=== PATIENT | female | born 1960 | race Caucasian/White ===

== ENCOUNTER 2016-09-11 13:09 | Inpatient (IN) | payer OTHER ==
--- NOTE | ~2016-09-11 | CR210 ---
[facility] A Service of [facility] & [facility] RADIOLOGY TEXT RESULTS PATIENT: TAYLOR RAMIREZ LOCATION: C2A - : [birth year] UNIT #: [id number] AGE: [address]: Oanh Whittington MD SEX: F ORDER DR: [id number] [facility] [address] [facility]. [place], [place] [address] [id number] I MR#: [id number] Acc #: [id number] NAME: TAYLOR RAMIREZ. : 1960 SEX: F STUDY DATE/TIME: 09/12/2016 10:50 UNIT: C2A ROOM: 219 STUDY DESCRIPTION: CR Ribs Uni 2 View W PA Ch Lt Attending Physician: Oanh Whittington M.D. Ordering Physician: Oanh Whittington M.D. Primary Care Physician: Irene Javier A.P.R.N. MEDICAL IMAGING REPORT This report is preliminary unless electronic signature is present EXAM AP chest and left rib series HISTORY Pain left rib through 2 days after fall. An AP chest and AP and oblique views of the left ribs are obtained. FINDINGS The patient has had a previous coronary artery bypass. There is an old fracture deformity of the left sixth rib. The ribs otherwise are intact. No acute fractures are seen. CONCLUSION 1. Status post CABG 2. Old left sixth rib fracture. No acute findings Dictated by... Sudarshan Herring M.D. THIS IS AN ELECTRONICALLY VERIFIED REPORT Sudarshan Herring M.D. at 09/14/2016 7:14 AM HERBERT/maximus TD: 09/12/2016 13:31 JOB #: [id number] MEDICAL IMAGING REPORT Page 1 of 1 COPY
--- NOTE | ~2016-09-11 | CO ---
Unit #: [id number] #: [id number] Patient: TAYLOR RAMIREZ [id number] [address] [address] [id number] I MR#: [id number] NAME: TAYLOR RAMIREZ. ROOM: [facility] Age: 56 Sex: F Admission Date: 09/11/2016 : 1960 Attending Physician: Oanh Whittington M.D. Primary Care Physician: Irene Javier A.P.R.N. Consultation Date: 09/12/2016 CONSULTATION REPORT REASON FOR CONSULT ICU management. CHIEF COMPLAINT Frequent falls. HISTORY OF PRESENT ILLNESS This is a 56-year-old female with past medical history significant for diabetes, noncompliant with her medication, presented to the emergency room complaining of frequent falls. Apparently, the patient had a fight with her primary care physician recently and she quit taking all her medication. She wasn't also eating well for the last few days and she was feeling nauseated. She denied any vomiting, shortness of breath, cough or chest pain. No fever, chills or night sweats. Upon presentation to the ER, the patient's blood sugar was about 1000. PAST MEDICAL HISTORY 1. Coronary artery disease. 2. Peripheral vascular disease. 3. Hypertension. 4. Hyperlipidemia. 5. Diabetes. 6. Seizure. 7. COPD. 8. Chronic pain. 9. Tobacco abuse. PAST SURGICAL HISTORY 1. Hysterectomy. 2. Nasal surgery. 3. Knee surgery. 4. Tubal ligation. 5. Appendectomy. 6. Cholecystectomy. 7. Cervical fusion. 8. CABG. 9. Carotid endarterectomy. SOCIAL HISTORY The patient continues to smoke but no history of alcohol or drug abuse. Unit #: [id number] #: [id number] Patient: TAYLOR RAMRIEZ FAMILY HISTORY Coronary artery disease. ALLERGIES No known drug allergies. HOME MEDICATIONS 1. Coumadin. 2. Zestril. 3. Humalog. 4. Flexeril. 5. Metformin. 6. Keppra. 7. Paxil. REVIEW OF SYSTEMS Twelve point review of systems were obtained and were negative except for what was mentioned in the HPI. PHYSICAL EXAMINATION GENERAL: The patient isn't in acute distress. VITAL SIGNS: Temperature 98.3, pulse 86, respiratory rate 17, blood pressure is 146/73, sat'ing 99% on room air. HEENT: Atraumatic, normocephalic. PERRLA, EOMI. NECK: Supple. No JVD, no lymphadenopathy. CHEST: Clear to auscultation bilaterally. HEART: S1, S2. No murmur, gallops or rubs. ABDOMEN: Soft, nontender. Bowel sounds positive. No hepatosplenomegaly. EXTREMITIES: No edema or cyanosis. SUPPLY CHAIN SPECIALIST: Awake, alert, oriented x3. No focal motor/sensory deficits. DIAGNOSTIC STUDIES LABORATORY: Creatinine 0.7, glucose 775, white blood count 8.7, hemoglobin 9.4. IMAGING: Unremarkable. ASSESSMENT 1. Hyperosmolar nonketotic coma or hyperosmolar hyperglycemia state. 2. Acute kidney injury. 3. Pseudohyponatremia. 4. Chronic anemia. 5. Chronic obstructive pulmonary disease. 6. Noncompliance. PLAN 1. Will continue insulin drip but we will transition into subcutaneous and metformin as tolerated. 2. Will DC IV fluids as soon as she is eating. 3. Pain management. 4. DC Boyd catheter. 5. Out of bed to chair and ambulation. 6. DVT prophylaxis. The patient supposedly needs to be on Coumadin. However, she is unsure of the indication and she has not taken it anyhow. I will defer to the primary team and outpatient PCP to address this point. Unit #: [id number] #: [id number] Patient: TAYLOR RAMIREZ Dictated by... Cata Arita TD: 09/12/2016 09:33 JOB #: [id number] CONSULTATION REPORT Page 1 of 1 X DYLAN DIAZ MD CONSULTATION REPORT
--- NOTE | ~2016-09-11 | EKG ---
PATIENT: TAYLOR RAMIREZ UNIT #: [id number] Ventricular Rate: 95 BPM Atrial Rate: 95 BPM P-R Interval: 158 ms QRS Duration: 98 ms Q-T Interval: 362 ms QTC Calculation(Bezet): 454 ms P [place]: 38 degrees Calculated R [place]: -45 degrees Calculated T [place]: 99 degrees Diagnosis Line: Normal sinus rhythm Diagnosis Line: Possible Left atrial enlargement Diagnosis Line: Incomplete right bundle branch block Diagnosis Line: Left anterior fascicular block Diagnosis Line: ST and T wave abnormality, consider lateral ischemia Diagnosis Line: Abnormal ECG Diagnosis Line: When compared with ECG of 09-JAN-2016 13:01, Diagnosis Line: No significant change was found Diagnosis Line: Confirmed by LUNA PRADHAN MD ([id number]) on Diagnosis Line: 09/12/2016 9:08:46 PM INTERPRETING MD: BLANCA
--- NOTE | ~2016-09-11 | DS ---
Unit #: [id number] #: [id number] Patient: TAYLOR SCHAEFER [id number] [address] [address] [id number] I MR#: [id number] NAME: TAYLOR SCHAEFER. ROOM: 219 Age: 56 Sex: F Admission Date: 09/11/2016 : 1960 Discharge Date: 09/13/2016 Attending Physician: Oanh Whittington M.D. Primary Care Physician: Irene Javier A.P.R.N. DISCHARGE SUMMARY PRINCIPAL DIAGNOSES 1. Hyperosmolar nonketotic hyperglycemia. 2. Diabetes mellitus type 2, insulin-requiring and uncontrolled. 3. Translocational hyponatremia. 4. Staph aureus urinary tract infection. 5. Left knee tendonitis. 6. Status post fall. 7. Renal mass with pending CT scan. 8. History of cerebrovascular accident, maintained on subtherapeutic anticoagulation. 9. Chronic anticoagulation. 10. Hyperkalemia. 11. Hypophosphatemia. 12. Normocytic anemia. 13. Peripheral arterial disease. 14. Chronic obstructive pulmonary disease. 15. Tobaccoism. 16. Mild protein malnutrition. 17. Noncompliance. 18. Coronary artery disease. 19. Hypertension. 20. Hyperlipidemia. 21. Seizure disorder. 22. Chronic pain syndrome. CONSULTANTS Dr. Wick, Endocrinology. Dr. Montalvo, Pulmonology. PROCEDURES 1. Chest x-ray on September 11, 2016, with hyperinflation of the lungs, no other acute findings. 2. Left rib x-ray on September 12, 2016, with old left 6th rib fracture. No other acute findings. 3. X-ray of left knee on September 12, 2016, with suprapatellar soft tissue swelling, no evidence of fracture. CLINICAL HISTORY AND HOSPITAL COURSE Ms. Schaefer is a 56-year-old female who presents to the emergency department with left rib and knee pain after some falls at home. During workup in the emergency department, she had blood work done, and was found to have a glucose of 1400. For this reason, she was actually admitted. Unit #: [id number] #: [id number] Patient: TAYLOR SCHAEFER Patient was placed on hyperosmolar nonketotic protocol and admitted to the ICU on an insulin drip. Dr. Wick was consulted. Patient's CT scan was reviewed and reveals an adenoma. This can be followed up as an outpatient. Lab work did reveal some mild hyperkalemia. She was treated with Lasix x1. I will continue Bactrim for her UTI given she has normal renal function. She will be discharged home today on Lovenox after further discussion. HOSPITAL COURSE Fortunately, patient's blood sugars lowered rapidly on insulin drip. She was transitioned to subcutaneous insulin and started on a diet. After eating, sugars did elevate into the 400s and insulin was subsequently adjusted. She will be discharged home on insulin as outlined below with close follow up with Dr. Wick. She has received dietary education during hospitalization, and has been encouraged to monitor sugars closely at home. In regards to patient's left knee and rib pain, x-rays were negative. She was seen by physical therapy, who suggested a rolling walker for which the patient has received her walker. Will continue with pain management exercises at home via Home Health, and if no improvement as an outpatient, she can undergo MRI of the knee. Patient did have urinalysis upon presentation concerning for urinary tract infection, but she was asymptomatic. Urine cultures growing staph aureus and given that she did have catheter during hospitalization, I am going to empirically treat with Bactrim and will follow-up urine culture after discharge. Patient has remained afebrile without leukocytosis. Patient does have a self-reported history of renal mass for which CT scan of the abdomen and pelvis is currently pending. I will review these results later today and consult Urology if necessary; however, further workup can be done on an outpatient basis. Patient also is on Coumadin due to prior history of cardioembolic stroke. She had a subtherapeutic INR upon presentation. She has been placed on bridging Lovenox, will increase/adjust Coumadin and INR can be followed up by Home Health. I anticipate discharge home later today pending results of CT scan. DISCHARGE CONDITION Stable. DISCHARGE STATUS Discharge home with Home Health for PT/OT and nursing for diabetes and INR monitoring. DISCHARGE MEDICATIONS 1. Lovenox 60 mg subcutaneously q.12 hours, to stop when INR greater than or equal to 2.0. 2. Coumadin 3 mg daily, with goal INR of 2-3. 3. Keppra 1000 mg b.i.d. 4. Paxil 10 mg daily. 5. Metformin 1000 mg b.i.d. Unit #: [id number] #: [id number] Patient: TAYLOR SCHAEFER 6. Coreg 3.125 mg p.o. b.i.d. 7. Lisinopril 10 mg half a tablet p.o. daily. 8. Humalog Kwikpen 10 units subcu t.i.d. with meals with associated high-dose sliding scale. 9. Lantus 30 units subcutaneously b.i.d. 10. Hudson 5/325 one p.o. q.4 hours p.r.n. for pain, number given 15. 11. Flexeril 10 mg one-half to one tablet p.o. q.8 hours p.r.n. for pain. DISCHARGE INSTRUCTIONS Patient instructed to follow heart healthy constant carb diet, to obtain Accu-Cheks a.c. and h.s. at home. She can increase her activity as tolerated to the care of physical and occupational therapy. FOLLOW UP Patient needs follow up INR done on September 15, 2016, again with goal INR 2-3. Lovenox may be discontinued when INR is between 2 and 3. She is to follow-up with Dr. Wick in approximately one month and will follow up with her primary care provider, Dr. Irene Javier, in approximately one month as well. Time spent on discharge 46 minutes. ADDITIONAL JOB #: [id number], [id number] Dictated by... Oanh Whittington M.D. URIEL/thuan TD: 09/13/2016 23:22 JOB #: [id number] DISCHARGE SUMMARY Page 1 of 1 X Oanh Whittington MD DISCHARGE SUMMARY
--- NOTE | ~2016-09-11 | DS ---
Unit #: [id number] #: [id number] Patient: TAYLOR RAMIREZ [id number] [address] [place], [place] [address] [id number] I MR#: [id number] NAME: TAYLOR RAMIREZ. ROOM: 219 Age: Sex: F Admission Date: 09/11/2016 : 1960 Discharge Date: 09/13/2016 Attending Physician: Oanh Whittington M.D. Primary Care Physician: Irene Javier A.P.R.N. DISCHARGE SUMMARY ADDENDUM DISCHARGE DIAGNOSES To discharge diagnoses, please add hyperkalemia. HOSPITAL COURSE Patient's CT scan was reviewed and reveals an adenoma. This can be followed up as an outpatient. Lab work did reveal some mild hyperkalemia. She was treated with Lasix x1. I will continue Bactrim for her UTI given she has normal renal function. She will be discharged home today on Lovenox after further discussion. Dictated by... Oanh Whittington M.D. URIEL/mynor TD: 09/13/2016 14:27 JOB #: [id number] DISCHARGE SUMMARY Page 1 of 1 X Oanh Whittington MD DISCHARGE SUMMARY
--- NOTE | ~2016-09-11 | CT6 ---
[facility] A Service of [facility] & [facility] RADIOLOGY TEXT RESULTS PATIENT: TAYLOR RAMIREZ LOCATION: C2A - : [birth year] UNIT #: [id number] AGE: [address]: Oanh Whittington MD SEX: F ORDER DR: [id number] [facility] [address] [facility] [place], [place] [address] [id number] I MR#: [id number] Acc #: [id number] NAME: TAYLOR RAMIREZ. : 1960 SEX: F STUDY DATE/TIME: 09/12/2016 21:35 UNIT: C2A ROOM: 219 STUDY DESCRIPTION: CT Abdomen WWo Cont Attending Physician: Oanh Whittington M.D. Ordering Physician: Hector Wick M.D. Primary Care Physician: Irene Javier A.P.R.N. MEDICAL IMAGING REPORT This report is preliminary unless electronic signature is present EXAM CT of the abdomen with and without contrast INDICATION Follow up left renal mass seen on recent CT scan. TECHNIQUE CT scan of the abdomen was performed before and after the administration of IV contrast. Coronal and sagittal reformatted images were obtained. This CT examination was performed with one or more of the following radiation dose reduction techniques: automatic exposure control, adjustment of mA and/or kV according to patient size, and iterative reconstruction. COMPARISON CT of the abdomen and pelvis from 01/09/2016. FINDINGS Lung bases are clear. There is a small amount of focal fatty infiltration of the liver adjacent to the falciform ligament. Cholecystectomy. The spleen is unremarkable. There is a well-circumscribed lesion located between the lateral limb of the left adrenal gland and the upper pole of the left kidney. On noncontrast imaging, it measures -5 Hounsfield units and I actually believe this represents a left adrenal gland adenoma rather than a lesion arising from the kidney. It measures about 2.4 cm in greatest dimension. It is not significantly changed compared with a study from 2016. Reviewing a study from 2007 shows that the lateral limb of the left adrenal gland is draped over and is nearly touching the upper pole of the left kidney. There are 2 small cysts within the right kidney. The right adrenal gland is unremarkable. The pancreas is unremarkable. [facility]. [facility] A Service of [facility] RADIOLOGY TEXT RESULTS PATIENT: TAYLOR RAMIREZ LOCATION: A 219-01 : [birth year] UNIT #: [id number] AGE: [address]: Oanh Whittington MD SEX: F ORDER DR: Atherosclerotic plaque within the abdominal aorta and the common iliac arteries. Postop changes anterior abdominal wall. The bone windows are unremarkable. IMPRESSION 1. Redemonstrated is a 2.4 cm lesion located between the left kidney and the left adrenal gland which measures negative Hounsfield units on noncontrast portion of the study and does enhance. I believe this represents a lipid rich adrenal adenoma and not a renal mass. 2. There are some small cysts within the right kidney. 3. Previous cholecystectomy. Dictated by... Chris Davis M.D. THIS IS AN ELECTRONICALLY VERIFIED REPORT Chris Davis M.D. at 09/14/2016 7:01 AM INDU/elis TD: 09/13/2016 08:46 JOB #: [id number] MEDICAL IMAGING REPORT Page 1 of 1 COPY
--- NOTE | ~2016-09-11 | A ---
[facility] Nutrition Therapy DATE: 09/12/16 Patient: TAYLOR RAMIREZ Physician: [id number] Address: [address] [place] [address] Room/Bed: [address] [place] [address], Zip: [place] [address] Admit Date: 09/11/16 Date of : [birth year] Height: 5 6 Weight: 150 68.2 NUTRITIONAL ASSESSMENT: REASON: Consult re: Diabetic diet education Dx: 56 y/o female admitted for upper hand/arm and rib pain PMH: DM, CAD, AL, PVD, Hypertension, hyperlipidemia, seizures, CABG Anthropometrics: 5'6", 147-150#, BMI 24 Labs: K+ 3.3, GLU 143, Ca++ 7.9, Alb 3.0, Phos 2.4 Meds: Coumadin, Novolog, hydrocodone, reglan, mag-sulfate, coreg I/O & Bowel function: 2729/1595, BM 6/ Skin Integrity: WNL Assessment: Chart reviwed, events noted. Seeing pt for consult re: diabetic diet education. RD internal medicine specialist spoke with pt at bedside. Pt reported having a poor appetite at home, and eating 1-2 meals per day, her meals typically being lasagna or a burger. Pt says she drinks water, diet soda, or tea with Splenda. RD internal medicine specialist provided written and verbal education on carbohydrate counting, explaining the importance of eating protein with every meal and not skipping meals. RD internal medicine specialist encouraged pt to eat carbohydrates consistently throughout the day and drink water. Pt voiced understanding and no questions at this time. RD will remain available. Intervention: 1. Diet education 2. Consistent Carbohydrate diet Recommendations: 1. Follow consistent carbohydrate diet. Respectfully, [facility] Nutrition Therapy DATE: 09/12/16 Patient: TAYLOR RAMIREZ Physician: [id number] Address: [address] [place] [address] Room/Bed: [address] [place] [address], Zip: [place] [address] Admit Date: 09/11/16 Date of : [birth year] Height: 5 6 Weight: 150 68.2 JUAN J BAKER, internet cafe manager Thien Pacheco MS, RD, LD [employer] [facility] [employer] cc: client file
--- NOTE | ~2016-09-11 | CR169 ---
[facility] A Service of [facility] & [facility] RADIOLOGY TEXT RESULTS PATIENT: TAYLOR RAMIREZ LOCATION: C2A - : [birth year] UNIT #: [id number] AGE: [address]: Oanh Whittington MD SEX: F ORDER DR: [id number] [facility] [address] [facility]. [place], [place] [address] [id number] I MR#: [id number] Acc #: [id number] NAME: TAYLOR RAMIREZ. : 1960 SEX: F STUDY DATE/TIME: 09/12/2016 10:56 UNIT: C2A ROOM: 219 STUDY DESCRIPTION: CR Knee 2 Views Lt Attending Physician: Oanh Whittington M.D. Ordering Physician: Oanh Whittington M.D. Primary Care Physician: Irene Javier A.P.R.N. MEDICAL IMAGING REPORT This report is preliminary unless electronic signature is present EXAM Left knee 2 views. HISTORY Fell 2 days ago with left knee pain. FINDINGS 2 views are submitted. There is suprapatellar soft tissue swelling. Underlying bony elements are intact. No fractures or foreign bodies are seen. CONCLUSION Suprapatellar soft tissue swelling. No fractures or foreign bodies. Dictated by... Sudarshan Herring M.D. THIS IS AN ELECTRONICALLY VERIFIED REPORT Sudarshan Herring M.D. at 09/14/2016 7:14 AM HERBERT/adelia TD: 09/12/2016 13:34 JOB #: [id number] MEDICAL IMAGING REPORT Page 1 of 1 COPY
--- NOTE | ~2016-09-11 | CR72 ---
[facility] A Service of [facility] RADIOLOGY TEXT RESULTS PATIENT: TAYLOR RAMIREZ LOCATION: C2 : [birth year] UNIT #: [id number] AGE: [address]: Oanh Whittington MD SEX: F ORDER DR: [id number] [facility] [address] [facility]. [place], [place] [address] [id number] MR#: [id number] Acc #: [id number] NAME: TAYLOR RAMIREZ. : 1960 SEX: F STUDY DATE/TIME: 09/11/2016 14:17 UNIT: [facility] ROOM: STUDY DESCRIPTION: CR Chest Single View Portable Attending Physician: Jair Capps M.D. Ordering Physician: Jair Capps M.D. Primary Care Physician: Irene Javier A.P.R.N. MEDICAL IMAGING REPORT This report is preliminary unless electronic signature is present EXAM Portable chest x-ray, 09/11/2016. HISTORY Dizziness. Frequent urination. Accu-Chek up. 2 days duration/ Hand and chest pain status post fall. Fall x2. Smoker 30 years. Diabetes, heart murmur, mitral valve prolapse. Heart cath, CABG. Triple bypass. TECHNIQUE AP radiograph of the chest is presented. COMPARISON 05/25/2016 FINDINGS Partially visualized cervicothoracic spinal fixation hardware appears intact. Status post median sternotomy and CABG. Heart upper limits of normal in size. The lungs are well inflated bilaterally. There is no evidence of acute infectious or inflammatory disease, pleural effusion, or pneumothorax. No suspicious nodule. Dictated by... Sudarshan Roberts M.D. THIS IS AN ELECTRONICALLY VERIFIED REPORT Sudarshan Roberts M.D. at 09/12/2016 5:16 PM HENNY/juan TD: 09/11/2016 17:06 JOB #: [id number] [facility] A Service of [facility] & [facility] RADIOLOGY TEXT RESULTS PATIENT: TAYLOR RAMIREZ [id number] : [birth year] UNIT #: [id number] AGE: [address]: Oanh Whittington MD SEX: F ORDER DR: MEDICAL IMAGING REPORT Page 1 of 1 COPY
--- NOTE | ~2016-09-11 | HP ---
Unit #: [id number] #: [id number] Patient: TAYLOR RAMIREZ [id number] [address] [place], [place] [address] [id number] MR#: [id number] NAME: TAYLOR RAMIREZ. ROOM: 71780 Age: 56 Sex: F Admission Date: 09/11/2016 : 1960 Attending Physician: Glenn Montalvo M.D. Primary Care Physician: Irene Javier A.P.R.N. HISTORY AND PHYSICAL CHIEF COMPLAINT Frequent falls. HISTORY OF PRESENT ILLNESS The patient is a 56-year-old female with a history of a diabetes mellitus, noncompliant, presented to the emergency room with frequent falls. The patient also complains of the numbness in the right upper hand and pain in the ribs. The patient stated the patient is not taking insulin for the last few days as patient is not eating well. The patient took the metformin yesterday. The patient was found to have blood sugars in the range of 114, 42 and is being admitted for the above reasons. The patient denies any fever, chills, nausea and vomiting. PAST MEDICAL HISTORY History of coronary artery disease and myocardial infarction, peripheral vascular disease, hypertension, hyperlipidemia, diabetes, seizure disorder, COPD, chronic pain, tobacco abuse. PAST SURGICAL HISTORY Hysterectomy, nasal surgery, knee surgery, tubal ligation, appendectomy, cholecystectomy, cervical fusion, coronary artery bypass grafting, carotid endarterectomy. SOCIAL HISTORY The patient does continue to smoke, denies alcohol or any illicit drug abuse. FAMILY HISTORY Coronary artery disease. ALLERGIES No known drug allergies. HOME MEDICATIONS She takes Coreg, Coumadin, Zestril, Humalog KwikPen 5 units subcu q.a.c., Flexeril, Glucophage, Keppra and Paxil. REVIEW OF SYMPTOMS Fourteen-point review of symptoms performed and only pertinent positive findings as described above, remaining are negative. PHYSICAL EXAMINATION GENERAL APPEARANCE: On examination the patient is sitting on a bed not in Unit #: [id number] #: [id number] Patient: TAYLOR RAMIREZ acute distress. VITAL SIGNS: Temperature 98.4, pulse 91, respiratory rate 18, blood pressure 153/79, sating 99% at room air. HEENT: Head atraumatic, normocephalic. Pupils equal, round and reacting to light and accommodation. Extraocular movements are intact. Dry mucous membrane. NECK: Supple. LUNGS: Decreased air entry at the bases. HEART: Regular rate and rhythm. ABDOMEN: Soft. EXTREMITIES: No cyanosis. No clubbing. NEUROLOGIC: Awake, alert and oriented. No gross focal motor deficit. DIAGNOSTIC STUDIES LABORATORY DATA: Sodium of 113, potassium 4.7, chloride 81, bicarb 20, glucose 1442, BUN 21, creatinine 1.3, beta hydroxybutyrate 0.08 and UA shows more than 1000 glucose, 10 to 25 urine WBCs, troponin less than 0.05, AST 21, ALT 14, alkaline phosphatase 148, pH 7.3, pCO2 36, pO2 78.7, bicarb 19.9, WBC 8, hemoglobin is 10.6, hematocrit 36.1, platelets 217. CARDIOVASCULAR: The EKG shows a normal sinus rhythm at a rate of 95 beats per minute, QTc of 454, IMAGING: Chest x-ray shows no acute cardiopulmonary process. ASSESSMENT 1. Hyperosmolar hyperglycemic state. 2. Hyponatremia. PLAN Plan to admit the patient as inpatient to ICU. Patient will get the IV fluid at 200 mL per hour and continue with the insulin drip 0.1 mg/kg and continue with the hyperglycemic hyperosmolar state protocol. Will have the endocrinology consult and critical care consult and further recommendations will follow. Dictated by Cata Marquez/dyan TD: 09/11/2016 17:13 JOB #: [id number] HISTORY AND PHYSICAL Page 1 of 1 X GLENN MONTALVO MD HISTORY AND PHYSICAL
--- NOTE | ~2016-09-11 | CO ---
Unit #: [id number] #: [id number] Patient: TAYLOR RAMIREZ [id number] [address] [place], [place] [address] [id number] I MR#: [id number] NAME: TAYLOR RAMIREZ ROOM: 219 Age: 56 Sex: F Admission Date: 09/11/2016 : 1960 Attending Physician: Oanh Whittington M.D. Primary Care Physician: Irene Javier A.P.R.N. Consultation Date: 09/11/2016 CONSULTATION REPORT REASON FOR CONSULTATION Hyperglycemia. HISTORY OF PRESENT ILLNESS A 56-year-old female, who does have a history of type 2 diabetes mellitus, poor compliance, who presented to the emergency room with frequent falls with complaining of the numbness in the hands, also been reporting that she has not been eating well. She has generalized weakness, increased thirst and increased frequency of urination. On her labs, she was found to have the blood glucose level of above 1400. Her sodium was 113. She was started on IV fluids. She already received a bolus of normal saline, more than 2 L in the ER. She has been transferred to the unit bed for further management and for the insulin drip management. REVIEW OF SYSTEMS A 12-point review of system was completed and remarkable for shortness of air, generalized weakness, increased falls, increased thirst, and increased urination. Declines any nausea, vomiting, or abdominal pain. No chest pains. No fever or chills. Rest of the 12-point review of systems unremarkable. PAST MEDICAL HISTORY Type 2 diabetes mellitus, poorly controlled; hyperlipidemia; seizure disorder; COPD; chronic pain disorder; tobacco use; coronary artery disease. PAST SURGICAL HISTORY Hysterectomy, nasal surgery, knee surgery, appendectomy, tubal ligation, cholecystectomy, cervical fusions, CABG, carotid endarterectomy, SOCIAL HISTORY Continues to smoke. No alcohol or illicit drugs. FAMILY HISTORY Known coronary artery disease. ALLERGIES None. HOME MEDICATIONS The patient does not remember her insulins; however, as per chart she is on Humalog 5 units each meal and Glucophage. Other medications include Zestril, Coumadin, Coreg, Paxil. Unit #: [id number] #: [id number] Patient: JAMES,TAYLOR P PHYSICAL EXAMINATION GENERAL: She is awake, alert, and oriented to time, place, and person. She is having some shortness of air. VITAL SIGNS: Temperature 99.6, pulse 88, respirations 20, blood pressure 172/72. HEENT: EOMI. Pupils equally reactive to light. NECK: Supple. CHEST: Good air entry. CVS: Regular rhythm. S1 and S2. ABDOMEN: Soft and nontender. Bowel sounds positive. EXTREMITIES: No edema. Ulcers are noted. LABORATORY DATA Labs were reviewed. Sodium is 113, potassium 4.7, chloride 81, CO2 is 20, glucose 1442. A1c is not available yet. ASSESSMENT 1. Hyperosmolar nonketotic hyperglycemia. 2. Hyponatremia, corrected sodium is 133. 3. Hydration. 4. Coronary artery disease, status post coronary artery bypass graft. 5. Acute kidney injury. PLAN We will continue the aggressive IV hydration. Continue insulin drip. Accu-Cheks every hourly. Keep the patient n.p.o. Monitor sodium, potassium, phosphorus closely. Monitor renal functions closely. Replace electrolytes as needed. We will continue to follow the patient for further management. Dictated by... Cata Stanford/sudhir TD: 09/12/2016 15:13 JOB #: [id number] CONSULTATION REPORT Page 1 of 1 X Hector Wick MD CONSULTATION REPORT
[~2016-09-11 13:09] MED LIST: ACETAMINOPHEN PO; ACTOS PO; ADVAIR 1001 DISK W/D; ADVAIR 2501 DISK W/D PO; ALBUTEROL17 G1 IH; ALBUTEROL17 GM; ALBUTEROL17 GM INH; AMARYL2 MG PO; ASPIRIN PO; ASPIRIN81 M1 PO; ASPIRIN81 MG PO; ATORVASTATIN CA80 MG PO; AUGMENTIN PO; BACLOFEN10 MG PO; BLOOD PRESSURE MED?; CALCIUM 500 + D1 TAB PO; CARVEDILOL6.25 MG PO; CHOLESTEROL MED?; COMBIVENT INH14.7 GM INH; COMBIVENT MININEB; COMBIVENT MININEB INH; COREG12.5 MG PO; COUMADIN5 MG PO; CRESTOR; CRESTOR PO; DICLOFENAC PO; DIFLUCAN PO; FLEXERIL PO; FLEXERIL10 MG PO; FLONASE 0.05% N16 G1; GLIMEPIRIDE2 MG PO; GLUCOPHAGE500 MG PO; HIGH BLOOD PRESS MED; IBUPROFEN800 MG PO; INSULIN; INSULIN ASPART; JANUVIA PO; KEPPRA500 M2 PO; LANTUS100 U/ML; LANTUS100 UNITS/ SUBQ; LEVEMIR; LEVEMIR SUBQ; LIPITOR40 MG PO; LISINOPRIL; LISINOPRIL-HCTZ1 T15 PO; LISINOPRIL5 MG PO; LORTAB 10/500 T1 TAB; LORTAB 10/500 T1 TAB PO; LORTAB 101 TAB 10/5 PO; LORTAB 7.5-5001 TAB PO; LOTRIMIN30 GM TOP; LOVASTATIN20 MG PO; METFORMIN PO; METHADONE HCL10 MG PO; METHADONE PO; METHADOSE10 M1 PO; METHADOSE10 MG PO; METOCLOPRAMIDE H5 MG PO; MICRO-K PO; NITROGLYGERIN0.4 MG SL; NOVOLIN 70/30 U13 ML INJ; NOVOLIN 70/30 V10 ML INJ; NOVOLIN R100 UNITS/ SUBQ; NOVOLOG100 U/ML; NOVOLOG100 U/ML SUBQ; NTG SL; NYSTATIN-TRIAMC15 G1 TP; OXYCODONE PO; OXYCODONE15 M1 PO; POTASSIUM 99 MG; PREDNISONE PO; PREDNISONE10 MG/DOSE; PROTONIX PO; REGLAN PO; SIMVASTATIN40 MG; SINGULAIR PO; SPIRIVA18 MCG INH; VITAMIN B 12; VOLMAX4 MG; VOLTAREN75 MG PO; ZESTRIL10 MG PO; [UNRECOGNIZED DRUG - OTHER]
[2016-09-11 14:38] LABS: BASOPHIL% 0.6 % (0-2.5); EOSINOPHIL# 0.1 X10e3 (0-0.7); HEMATOCRIT 36.1 % (35.0-45.0); HEMOGLOBIN 10.6 gm/dL (12.0-16.0); MEAN CELL VOLUME 97.1 FL (83-96); MEAN CORPUSCULAR HEMOGLOBIN 28.6 PG (28-34); MEAN CORPUSCULAR HGB CONC 29.4 g/dL (30-36); MONOCYTE# 0.6 X10e3 (0-1.0); MONOCYTE% 7.5 % (3.0-12.0); NEUTROPHIL# 6.2 X10e3 (1.5-7.1); NEUTROPHIL% 77.9 % (40-75); PLATELET COUNT 217 X10e3 (140-420); RED BLOOD COUNT 3.72 X10e (3.90-5.30); RED CELL DISTRIBUTION WIDTH 17.3 % (11.0-15.5)
[2016-09-11 14:42] LABS: DIFF IND NO
[2016-09-11 14:44] LABS: ARTERIAL BLOOD GAS PCO2 36.1 mmHg (35.0-45.0); ARTERIAL BLOOD GAS PO2 78.7 mmHg (80.0-100); ARTERIAL BLOOD GAS pH 7.349 (7.350-7.450)
[2016-09-11 14:45] LABS: ARTERIAL BLD GAS O2 SATURATION 97.1 % (90.0-100.0); ARTERIAL BLOOD GAS CARBOXY HB 1.4 %sat (0.0-9.0); ARTERIAL BLOOD GAS HCO3 19.9 mmol/L; ARTERIAL BLOOD GAS MET HB 0.8 %sat (0.0-2.0)
[2016-09-11 14:46] LABS: ARTERIAL BLOOD GAS ALLEN TEST NORMAL; ARTERIAL BLOOD GAS ART SITE LEFT BRACHIAL; ARTERIAL DRAW? YES
[2016-09-11 15:06] LABS: URINE SOURCE CLEAN CATCH
[2016-09-11 15:11] LABS: BILIRUBIN, DIRECT 0.1 mg/dL (0.0-0.2); BILIRUBIN,INDIRECT 0.2 mg/dL (0.0-0.9); BILIRUBIN,TOTAL 0.3 mg/dL (0.2-2.0); PROTEIN TOTAL SERUM 6.8 g/dL (6.0-8.3)
[2016-09-11] MEDS ORDERED: FLEXERIL PO (15:25)
[2016-09-11] MEDS ORDERED: PATIENT'S PHARMACY (15:25)
[2016-09-11 15:26] LABS: URINE APPEARANCE CLEAR; URINE BILIRUBIN NEG (NEG); URINE BLOOD TRACE (NEG); URINE COLOR YELLOW; URINE GLUCOSE >1000 MG/DL (NEG); URINE KETONE NEG (NEG); URINE LEUKOCYTE ESTERASE TRACE (NEG); URINE NITRATE NEG (NEG); URINE PH 5.5 (5-8); URINE PROTEIN TRACE (NEG); URINE UROBILINOGEN 0.2 MG/DL (NEG)
[2016-09-11] MEDS ORDERED: PAXIL PO (15:26)
[2016-09-11] MEDS ORDERED: KEPPRA500 M1 PO (15:26)
[2016-09-11] MEDS ORDERED: COREG3.125 MG PO (15:26)
[2016-09-11] MEDS ORDERED: METFORMIN PO (15:26)
[2016-09-11] MEDS ORDERED: COUMADIN2.5 MG PO (15:26)
[2016-09-11 15:27] LABS: POC - TROPONIN <0.05 ng/mL (<=0.05)
[2016-09-11] MEDS ORDERED: LISINOPRIL PO (15:27)
[2016-09-11] MEDS ORDERED: HUMALOG KW100 UNIT/1 SUBQ (15:28)
[2016-09-11 15:29] LABS: CULTURE INDICATED? YES; URBCS1 AUWI 0-2 /[HPF] (0-2); URINE BACTERIA AUWI NEG (NEGATIVE); URINE SQUAMOUS EPITHELIAL CELL NONE SEEN /[HPF]
[2016-09-11 15:34] LABS: BETA HYDROXYBUTYRATE 0.08 MMOL/L (0.02-0.27); BUN/CREATININE RATIO 16.15; CALCIUM SERUM 8.5 mg/dL (8.4-10.2); CREATININE SERUM 1.3 mg/dL (0.6-1.4); GLOM FILT RATE Estimated 46.5 mL/min (>60); POTASSIUM 4.7 mmol/L (3.5-5.1)
[2016-09-11 20:49] LABS: BUN/CREATININE RATIO 16.66; CALCIUM SERUM 8.4 mg/dL (8.4-10.2); CREATININE SERUM 0.9 mg/dL (0.6-1.4); GLOM FILT RATE Estimated 72.5 mL/min (>60); PHOSPHOROUS 2.6 mg/dL (2.5-4.6); POTASSIUM 4.3 mmol/L (3.5-5.1)
[2016-09-12 05:03] LABS: BASOPHIL% 0.4 % (0-2.5); EOSINOPHIL# 0.2 X10e3 (0-0.7); EOSINOPHIL% 2.3 % (0.0-7.0); HEMATOCRIT 28.3 % (35.0-45.0); HEMOGLOBIN 9.4 gm/dL (12.0-16.0); LYMPHOCYTE# 3.2 X10e3 (1.0-3.5); LYMPHOCYTE% 36.5 % (17.0-45.0); MEAN CORPUSCULAR HEMOGLOBIN 28.5 PG (28-34); MEAN CORPUSCULAR HGB CONC 33.1 g/dL (30-36); MEAN PLATELET VOLUME 10.4 FL (6.5-11.5); MONOCYTE# 0.6 X10e3 (0-1.0); MONOCYTE% 7.4 % (3.0-12.0); NEUTROPHIL# 4.6 X10e3 (1.5-7.1); NEUTROPHIL% 53.4 % (40-75); PLATELET COUNT 194 X10e3 (140-420); RED BLOOD COUNT 3.28 X10e (3.90-5.30); RED CELL DISTRIBUTION WIDTH 16.2 % (11.0-15.5); WHITE BLOOD COUNT 8.7 X10e3 (4.0-10.5)
[2016-09-12 05:50] LABS: BUN/CREATININE RATIO 18.57; CALCIUM SERUM 7.9 mg/dL (8.4-10.2); CREATININE SERUM 0.7 mg/dL (0.6-1.4); GLOM FILT RATE Estimated 98.2 mL/min (>60); MAGNESIUM 1.9 mg/dL (1.6-3.0); PHOSPHOROUS 2.4 mg/dL (2.5-4.6); POTASSIUM 3.3 mmol/L (3.5-5.1)
[2016-09-12 06:01] LABS: MEAN CELL VOLUME 86.2 FL (83-96)
[2016-09-12 06:03] LABS: DIFF IND NO
[2016-09-13 10:45] LABS: INR 0.9; PROTHROMBIN TIME (PATIENT) 9.8 SECONDS (9.6-11.5)
[2016-09-13 11:16] LABS: BUN/CREATININE RATIO 25.71; CREATININE SERUM 0.7 mg/dL (0.6-1.4); GLOM FILT RATE Estimated 98.2 mL/min (>60); PHOSPHOROUS 3.6 mg/dL (2.5-4.6); POTASSIUM 5.4 mmol/L (3.5-5.1)
[2016-09-13] MEDS ORDERED: COUMADIN3 MG PO (14:56)
[2016-09-13] MEDS ORDERED: LOVENOX SUBQ (14:57)
[2016-09-13] MEDS ORDERED: LANTUS100 U/ML SUBQ (15:02)
[2016-09-13] MEDS ORDERED: HUMALOG100 UNIT/2 (15:03)
[2016-09-13] MEDS ORDERED: BACTRIM DS TAB1 EACH PO (15:04)
[2016-09-13] MEDS ORDERED: HYDROCODON-ACE1 EAC7 PO (15:04)
== END 2016-09-13 19:45 | disposition home or self-care (01) | DRG 638 ==
LOC: CED 13:09 → CEDOF 16:27 → CED 17:08 → CEDOF 17:08 → CICCU2 18:48 → CEDOF 18:48 → CICCU2 09-12 08:22 → C2A 09-12 12:45 → CICCU2 09-12 12:45 → C2A 09-13 19:45
PROVIDERS: Emergency Medicine; Internal Medicine
DX: E11.00 Type 2 diabetes mellitus with hyperosmolarity without nonketotic hyperglycemic-hyperosmolar coma (NKHHC) (principal); E87.1 Hypo-osmolality and hyponatremia; N17.9 Acute kidney failure, unspecified; B95.61 Methicillin susceptible Staphylococcus aureus infection as the cause of diseases classified elsewhere; N39.0 Urinary tract infection, site not specified; E44.1 Mild protein-calorie malnutrition; E11.65 Type 2 diabetes mellitus with hyperglycemia; Z79.4 Long term (current) use of insulin; Q99.8 Other specified chromosome abnormalities; M76.892 Other specified enthesopathies of left lower limb, excluding foot; N28.89 Other specified disorders of kidney and ureter; Z86.73 Personal history of transient ischemic attack (TIA), and cerebral infarction without residual deficits; Z79.01 Long term (current) use of anticoagulants; E87.5 Hyperkalemia; E83.39 Other disorders of phosphorus metabolism; D64.9 Anemia, unspecified; I73.9 Peripheral vascular disease, unspecified; J44.9 Chronic obstructive pulmonary disease, unspecified; F17.210 Nicotine dependence, cigarettes, uncomplicated; I25.10 Atherosclerotic heart disease of native coronary artery without angina pectoris; Z91.19 Patient's noncompliance with other medical treatment and regimen; I10 Essential (primary) hypertension; E78.5 Hyperlipidemia, unspecified; G40.909 Epilepsy, unspecified, not intractable, without status epilepticus; G89.4 Chronic pain syndrome; Z91.81 History of falling; Z90.710 Acquired absence of both cervix and uterus; Z95.1 Presence of aortocoronary bypass graft
CPT/HCPCS: 36600; 71010; 71101; 73560; 74170; 80048; 80076; 81003; 82010; 82553; 82803; 82947; 83036; 83735; 84100; 84132; 84484; 85025; 85610; 87086; 87088; 87186; 90732; 93005; 96360; 97116; 97162; 97165; 97530; 99291; G0009; G8978-GP; G8979-GP; G8980-GP; G8987-GO; G8988-GO; J1650; J1815; J1940; J2270; J3475; Q9967